=== PATIENT | male | born 1985 | race African-American/Black ===

== ENCOUNTER 2017-06-20 22:29 | Emergency (ER) | payer MEDICAID, OTHER ==
[~2017-06-20] VITALS: Ht 182.9 cm; Wt 83.9 kg
[2017-06-20 22:35] VITALS: BP 119/68
[2017-06-20] MEDS ORDERED: NKM (22:35)
[2017-06-20] MEDS ORDERED: IBUPROFEN600 MG ORAL (22:58)
--- NOTE | 2017-06-20 22:58 | Emergency Room Report ---
History of Present Illness General Chief Complaint: Back Pain-No Injury Source: Patient Present Illness HPI Is a 32-year-old male with no past medical history. He presents with chief complaint of left lower back and hip pain. Onset for for 5 months. No trauma. No fever chills but no nausea no vomiting. Denies any other complaint. No incontinence of bowel or urine. He went to a chiropractor who adjusted his back and he said is typical better but he still feeling tenderness to the lower back area. It is 6 out of 10. Worse with sitting. Worse with certain position. Allergies: Coded Allergies: No Known Allergies (Unverified , 06/20/17) Patient History Past Medical History: see triage record, old chart reviewed Past Surgical History: none Pertinent Family History: none Social History: Denies: smoking Immunizations: other Reviewed Nursing Documentation: PMH: Agreed; PSxH: Agreed Nursing Documentation-PM Past Medical History: No Stated History Review of Systems Eye: Denies: eye pain, blurred vision ENT: Denies: ear pain, nose congestion, throat swelling Respiratory: Denies: cough, shortness of breath Cardiovascular: Denies: chest pain, palpitations Gastrointestinal: Denies: abdominal pain, diarrhea, nausea, vomiting Musculoskeletal: Reports: back pain; Denies: joint pain Skin: Denies: rash Neurological: Denies: headache, numbness Endocrine: Denies: increased thirst, increased urine Hematologic/Lymphatic: Denies: easy bruising All Other Systems: negative except mentioned in HPI Physical Exam Vital Signs Date Time Temp Pulse Resp B/P (MAP) Pulse Ox O2 Delivery O2 Flow Rate FiO2 06/20/17 22:31 98.1 74 18 119/68 96 Room Air 98.1 vitals unremarkable Sp02 EP Interpretation: reviewed, normal General Appearance: well appearing, no apparent distress, alert Head: normocephalic, atraumatic Eyes: bilateral eye PERRL, bilateral eye EOMI ENT: hearing grossly normal, normal pharynx Neck: full range of motion, supple, no meningismus Respiratory: chest non-tender, lungs clear, normal breath sounds Cardiovascular #1: regular rate, rhythm, no murmur Gastrointestinal: normal bowel sounds, non tender, no mass, no organomegaly, no bruit, non-distended Musculoskeletal: back normal - mild tenderness to the left lower lumbar area, gait/station normal, normal range of motion Psychiatric: mood/affect normal Skin: warm/dry Medical Decision Making Diagnostic Impression: Primary Impression: Back pain Qualified Codes: M54.5 - Low back pain; G89.29 - Other chronic pain ER Course Patient presents with back pain. No evidence of cauda equina syndrome, spinal epidural abscess or neoplastic process. We'll discharge home. Other X-Ray Diagnostic Results Other X-Ray Diagnostic Results : X-Ray ordered: lumbar spine x-rays # of Views/Limited Vs Complete: 4 View Indication: Pain EP Interpretation: Yes Interpretation: no dislocation, no soft tissue swelling, no fractures Impression: No acute disease Electronically Signed by: Sridhar Ma MD Last Vital Signs Date Time Temp Pulse Resp B/P (MAP) Pulse Ox O2 Delivery O2 Flow Rate FiO2 06/20/17 22:52 98.1 06/20/17 22:31 74 18 119/68 96 Room Air Status: unchanged Disposition: HOME, SELF-CARE Condition: Stable Scripts Ibuprofen* (MOTRIN*) 600 Mg Tablet 600 MG ORAL THREE TIMES A DAY, #30 TAB 0 Refills Prov: SRIDHAR MA M.D. 06/20/17 Referrals: [facility]ERR[facility] (PCP) Patient Instructions: Back Pain, Adult Additional Instructions: Follow-up with your doctor in 7 days. Return if worse. If not better, you may need an MRI. SRIDHAR MA M.D. Jun 20, 2017 22:58
[2017-06-20 23:10] VITALS: BP 119/68
--- NOTE | 2017-06-21 10:18 | Diagnostic Imaging Report ---
Indication: Back pain Comparison: None Findings: 3 views of the lumbar spine were obtained.
== END 2017-06-20 23:10 | disposition home or self-care (01) ==
LOC: EMR 22:39
DX: M54.5 Low back pain (principal)
CPT/HCPCS: 72020; 99283